=== PATIENT | female | born 2000 | race Caucasian/White ===

== ENCOUNTER 2023-11-11 22:23 | Emergency (ER) | payer SELFPAY ==
[2023-11-11 22:29] VITALS: TEMP 98.1; BMI 22.4
[2023-11-11 23:18] LABS: BASO % 0.3 % (0-2.0); HEMATOCRIT 42.3 % (32.4-45.2); HEMOGLOBIN 14.3 GM/dL (10.7-15.3); MCH 29.9 pg (25.7-33.7); MCHC 33.9 g/dl (32.0-36.0); MEAN CELL VOLUME 88.4 fl (80-96); MEAN PLT VOLUME 7.9 fl (7.5-11.1); MONO % 3.7 % (3.8-10.2); PLATELET COUNT 305 10^3/uL (134-434); RBC 4.79 M/mm3 (3.60-5.2); RDW 13.1 % (11.6-15.6); WHITE BLOOD COUNT 14.7 K/mm3 (4.0-10.0)
[2023-11-11 23:19] LABS: URINE APPEARANCE CLEAR; URINE BILIRUBIN NEGATIVE (NEGATIVE); URINE COLOR YELLOW; URINE GLUCOSE (UA) NEGATIVE (NEGATIVE); URINE KETONE NEGATIVE (NEGATIVE); URINE LEUK ESTERASE NEGATIVE (NEGATIVE); URINE NITRITE NEGATIVE (NEGATIVE); URINE PROTEIN NEGATIVE (NEGATIVE); URINE UROBILINOGEN 0.2 mg/dL (0.2-1.0)
[2023-11-11 23:24] LABS: INR 1.04 (0.83-1.09); PROTHROMBIN TIME (PATIENT) 11.7 SEC (9.7-13.0)
[2023-11-11 23:27] LABS: ACTIVATED PTT 31.3 SECONDS (25.2-36.5)
[2023-11-11 23:35] LABS: CHLORIDE 105 mmol/L (98-107); POTASSIUM 3.8 mmol/L (3.5-5.1); SODIUM 138 mmol/L (136-145)
[2023-11-11 23:37] LABS: CALCIUM 9.4 mg/dL (8.5-10.1); GLUCOSE,RANDOM 97 mg/dL (74-106)
[2023-11-11 23:38] LABS: ALBUMIN 3.9 g/dl (3.4-5.0); ANION GAP 6 mmol/L (4-13); BLOOD UREA NITROGEN 8.8 mg/dL (7-18); CO2 27 mmol/L (21-32); MAGNESIUM 2.1 mg/dL (1.8-2.4)
[2023-11-11 23:40] LABS: SGPT/ALT 15 U/L (13-61)
[2023-11-11 23:41] LABS: CREATININE 0.9 mg/dL (0.55-1.3); PHOSPHOROUS 3.3 mg/dL (2.5-4.9); SGOT/AST 13 U/L (15-37)
[2023-11-11 23:42] LABS: BILIRUBIN,TOTAL 0.3 mg/dL (0.2-1); TOT PROT 8.3 g/dl (6.4-8.2)
[2023-11-11 23:43] LABS: ALK PHOS 73 U/L (45-117)
[2023-11-12] MEDS ORDERED: ACETAMINOPHEN INJECTION 100 ML IVPB ONE (00:24)
[2023-11-12] MEDS ORDERED: MAG HYDROX/AL HYDROX/SIMETH 30 ML UNIT-DOSE CUP ONE (00:24)
[2023-11-12] MEDS ORDERED: FAMOTIDINE 10 MG/ML VIAL IVPB ONE (00:25)
[2023-11-12] MEDS: FAMOTIDINE 20 MG/50 ML IVPB 20 MG/50 ML MG IVPB ONE (00:30)
[2023-11-12] MEDS: MAG HYDROX/AL HYDROX/SIMETH -MYLANTA- ORAL SUSPENSION PO ONE (00:30)
[2023-11-12] MEDS: ACETAMINOPHEN 1000 MG/100 ML BAG IVPB ONE (00:30)
[2023-11-12] MEDS ORDERED: PANTOPRAZOLE SODIUM 40 MG VIAL ONE (02:49)
[2023-11-12] MEDS ORDERED: KETOROLAC TROMETHAMINE 15 MG/ML VIAL ONE (02:49)
[2023-11-12] MEDS: KETOROLAC TROMETHAMINE 15 MG/ML VIAL IVPUSH ONE (02:52)
[2023-11-12] MEDS: PANTOPRAZOLE SODIUM 40 MG VIAL IVPUSH ONE (02:52)
[2023-11-12 03:20] VITALS: BP 121/76; PULSE 79; RESP 16
== END 2023-11-12 03:20 | disposition home or self-care (01) ==
LOC: JER 22:23
DX: D72.829 Elevated white blood cell count, unspecified (principal); R10.13 Epigastric pain; R00.2 Palpitations; R14.0 Abdominal distension (gaseous); Z20.822 Contact with and (suspected) exposure to COVID-19
CPT/HCPCS: 0241U-QW; 36415; 71046-TC-FY; 74177-TC; 80053; 81003; 83690; 83735; 84100; 84443; 84484; 84702; 85025; 85610; 85730; 87086; 87186; 93005; 93010; 99285-25; J0131; Q9967